=== PATIENT | male | born 1980 | race Two or more races ===

== ENCOUNTER 2016-12-17 10:18 | Inpatient (IN) | payer SELFPAY ==
[~2016-12-17] VITALS: Ht 175.3 cm; Wt 101.0 kg
[2016-12-17] MEDS ORDERED: VANCOMYCIN 1GM/250ML D5W 250 ML IV ONE (12:00)
[2016-12-17] MEDS ORDERED: TETANUS-DIPTH-ACEL PERTUSSIS 0.5ML SYRG IM ONE (12:00)
[2016-12-17] MEDS ORDERED: MORPHINE SULFATE 4 MG/ML SYRG IM ONE (12:00)
[2016-12-17] MEDS ORDERED: SODIUM CHLORIDE 0.9% 1,000 ML IV ONE (12:00)
[2016-12-17] MEDS ORDERED: PIPERACILLIN-TAZOB 3.375GM 100 ML IV ONE (12:00)
[2016-12-17] MEDS ORDERED: ONDANSETRON HCL 4 MG/2 ML VIAL IV ONE (12:00)
[2016-12-17 12:09] LABS: Basophils # (auto) 0 uL; Basophils % (auto) 0.3 % (0.0-2.0); Eosinophils # (auto) 0.2 uL; Eosinophils % (auto) 1.6 % (0.0-7.0); Hematocrit 40.5 % (41.0-53.0); Hemoglobin 13.7 g/dL (13.5-17.5); Lymphocytes # (auto) 2.2 uL; Lymphocytes % (auto) 18.5 % (10.0-50.0); Mean Corpuscular Hgb Conc. 33.8 g/dL (32.0-36.0); Mean Corpuscular Volume 94.6 fL (80.0-100.0); Mean Platelet Volume 7.1 fL (7.4-10.4); Monocytes # (auto) 1.4 uL; Monocytes % (auto) 12.1 % (0.0-12.0); Neutrophils % (auto) 67.5 % (37.0-80.0); Platelet Count (auto) 353 10^3/uL (140-450); Red Cell Distribution Width 12.4 % (11.6-16.0); White Blood Cell 11.8 10^3/uL (4.4-10.8)
[2016-12-17] MEDS ORDERED: MORPHINE SULFATE 4 MG/ML SYRG IV ONE (12:15)
[2016-12-17] MEDS: SODIUM CHLORIDE 0.9% 1,000 ML IV SCH ×2 (12:20→22:20)
[2016-12-17 12:29] LABS: Albumin 3.3 g/dL (3.4-5.0); BUN/Creatinine Ratio 19.1; Calcium 8.7 mg/dL (8.5-10.1); Potassium 3.9 mmol/L (3.5-5.1); Total Protein 7.4 g/dL (6.4-8.2)
[2016-12-17] MEDS ORDERED: LACTULOSE 20Gm/30ML SOLN PO PRN (12:30)
[2016-12-17] MEDS ORDERED: PROMETHAZINE HCL 25 MG/ML 1ML IV PRN (12:30)
[2016-12-17] MEDS ORDERED: TEMAZEPAM 15 MG CAP PO PRN (12:30)
[2016-12-17] MEDS ORDERED: ACETAMINOPHEN 500 MG TAB PO PRN (12:30)
[2016-12-17] MEDS ORDERED: LORazepam 0.5 MG TAB PO PRN (12:30)
[2016-12-17 12:50] LABS: INR 0.99 (0.9-1.15); Partial Thromboplastin Time 33.1 sec (22.64-33.71); Prothrombin Time 10.2 sec (9.37-12.3)
[2016-12-17] MEDS: HYDROcodone-ACET 5/325MG TAB PO PRN ×2 (13:43→21:46)
[2016-12-17] MEDS: CLINDAMYCIN 600MG IV 50 ML IV SCH ×2 (14:50→21:45)
[2016-12-17 16:56] VITALS: BP 123/71
[2016-12-17] MEDS: MORPHINE SULF INJ 2 MG/ML SYRINGE 1ML IV PRN (18:41)
[2016-12-17 21:56] VITALS: BP 123/74
[2016-12-18] MEDS: MORPHINE SULF INJ 2 MG/ML SYRINGE 1ML IV PRN ×2 (03:04→20:43)
[2016-12-18 04:57] VITALS: BP 106/65
[2016-12-18] MEDS: CLINDAMYCIN 600MG IV 50 ML IV SCH ×3 (05:16→22:14)
[2016-12-18 05:48] LABS: Basophils # (auto) 0 uL; Basophils % (auto) 0.2 % (0.0-2.0); Eosinophils # (auto) 0.2 uL; Eosinophils % (auto) 1.9 % (0.0-7.0); Hematocrit 38.5 % (41.0-53.0); Hemoglobin 12.8 g/dL (13.5-17.5); Lymphocytes # (auto) 1.9 uL; Lymphocytes % (auto) 21.9 % (10.0-50.0); Mean Corpuscular Hemoglobin 31.6 pg (28.0-32.0); Mean Corpuscular Hgb Conc. 33.3 g/dL (32.0-36.0); Mean Corpuscular Volume 94.8 fL (80.0-100.0); Mean Platelet Volume 6.7 fL (7.4-10.4); Monocytes % (auto) 11.7 % (0.0-12.0); Neutrophils # (auto) 5.6 uL; Neutrophils % (auto) 64.3 % (37.0-80.0); Platelet Count (auto) 348 10^3/uL (140-450); Red Cell Distribution Width 12.3 % (11.6-16.0); White Blood Cell 8.8 10^3/uL (4.4-10.8)
[2016-12-18 06:17] LABS: Cholesterol 184 mg/dL (<200); HDL Cholesterol 43 mg/dL (40-59); LDL Cholesterol 123 mg/dL (<100); Triglycerides 114 mg/dL (<150)
[2016-12-18] MEDS ORDERED: ceFAZolin 1GM/50ML D5W 50 ML IV ONE (07:10)
[2016-12-18] MEDS ORDERED: BUPIVACAINE 0.25% INJ 50ML VIAL ONE (07:52)
[2016-12-18] MEDS ORDERED: LIDOCAINE 1% HCL (LOCAL ANESTH.) INJ 20ML MDV ONE (07:52)
[2016-12-18] MEDS ORDERED: BUPIVACAINE W/ EPINEPH 0.25% INJ 50ML MDV ONE (07:52)
[2016-12-18] MEDS ORDERED: LIDOCAINE W/ EPINEPHRINE 1 % INJ 30ML ONE (07:52)
[2016-12-18] MEDS ORDERED: ceFAZolin 1GM VL ONE (08:15)
[2016-12-18] MEDS: SODIUM CHLORIDE 0.9% 1,000 ML IV SCH ×2 (08:20→18:49)
[2016-12-18] MEDS ORDERED: MIDAZOLAM HCL 1MG/1ML-2 ML VIAL ONE (08:21)
[2016-12-18] MEDS ORDERED: fentaNYL CITRATE 100 MCG/2 ML VL ONE (08:21)
[2016-12-18] MEDS ORDERED: MEPERIDINE HCL (50 MG/ML) 1 ML VIAL ONE (08:21)
[2016-12-18] MEDS ORDERED: DEXAMETHASONE SOD PHOS 10MG/1ML VIAL INJ ONE (08:22)
[2016-12-18] MEDS ORDERED: KETOROLAC TROMETH 30 MG/ML 1ML VIAL IV ONE (08:30)
[2016-12-18] MEDS ORDERED: MIDAZOLAM HCL 1MG/1ML-2 ML VIAL IV PRN (08:30)
[2016-12-18] MEDS ORDERED: LABETALOL HCL 5 MG/ML 4ML SYRINGE IV PRN (08:30)
[2016-12-18] MEDS ORDERED: ONDANSETRON HCL 4 MG/2 ML VIAL IV ONE (08:30)
[2016-12-18] MEDS ORDERED: ePHEDrine SULFATE 50 MG/ML AMP IV PRN (08:30)
[2016-12-18] MEDS ORDERED: MORPHINE SULF INJ 2 MG/ML SYRINGE 1ML IV PRN (08:30)
[2016-12-18] MEDS ORDERED: PROPOFOL 10 MG/ML 20 ML IV ONE (08:40)
[2016-12-18] MEDS: cefTRIAXone 1GM/50ML D5W 50 ML IV SCH (09:00)
[2016-12-18] MEDS ORDERED: KETOROLAC TROMETH 30 MG/ML 1ML VIAL ONE (09:03)
[2016-12-18] MEDS: HYDROmorphone HCL 2 MG/ML VL IV PRN ×4 (09:46→10:16)
[2016-12-18] MEDS ORDERED: HYDROmorphone HCL 2 MG/ML VL IV PRN (10:15)
[2016-12-18 12:45] VITALS: BP 121/69
[2016-12-18 16:44] VITALS: BP 105/58
[2016-12-18] MEDS: HYDROcodone-ACET 5/325MG TAB PO PRN ×2 (17:28→23:48)
[2016-12-18 21:28] VITALS: BP 109/66
[2016-12-19 05:25] VITALS: BP 114/63
[2016-12-19 06:02] LABS: Basophils # (auto) 0 uL; Basophils % (auto) 0.2 % (0.0-2.0); Eosinophils # (auto) 0 uL; Eosinophils % (auto) 0.4 % (0.0-7.0); Hematocrit 34.6 % (41.0-53.0); Hemoglobin 11.6 g/dL (13.5-17.5); Lymphocytes # (auto) 1.7 uL; Lymphocytes % (auto) 14.9 % (10.0-50.0); Mean Corpuscular Hemoglobin 31.9 pg (28.0-32.0); Mean Corpuscular Hgb Conc. 33.5 g/dL (32.0-36.0); Mean Corpuscular Volume 95.3 fL (80.0-100.0); Mean Platelet Volume 6.9 fL (7.4-10.4); Monocytes % (auto) 8.5 % (0.0-12.0); Neutrophils # (auto) 8.6 uL; Platelet Count (auto) 359 10^3/uL (140-450); Red Cell Distribution Width 11.9 % (11.6-16.0); White Blood Cell 11.3 10^3/uL (4.4-10.8)
[2016-12-19] MEDS: CLINDAMYCIN 600MG IV 50 ML IV SCH (06:55)
[2016-12-19] MEDS: SODIUM CHLORIDE 0.9% 1,000 ML IV SCH ×4 (06:55→22:49)
[2016-12-19] MEDS: MORPHINE SULF INJ 2 MG/ML SYRINGE 1ML IV PRN ×4 (07:04→23:19)
[2016-12-19 08:40] VITALS: BP 118/63
[2016-12-19] MEDS: HYDROcodone-ACET 5/325MG TAB PO PRN ×3 (08:54→20:41)
[2016-12-19] MEDS: cefTRIAXone 1GM/50ML D5W 50 ML IV SCH (08:55)
[2016-12-19] MEDS ORDERED: HYDROmorphone HCL 2 MG/ML VL IV PRN (09:30)
[2016-12-19] MEDS ORDERED: VANCOMYCIN PER PHARMACY 0 MG IV SCH (09:30)
[2016-12-19] MEDS: VANCOMYCIN 1GM/250ML D5W 250 ML IV SCH ×2 (12:00→18:50)
[2016-12-19 12:32] VITALS: BP 123/80
[2016-12-19 16:47] VITALS: BP 122/73
[2016-12-19 21:27] VITALS: BP 120/72
[2016-12-20] MEDS: VANCOMYCIN 1GM/250ML D5W 250 ML IV SCH ×2 (03:08→11:00)
[2016-12-20] MEDS: MORPHINE SULF INJ 2 MG/ML SYRINGE 1ML IV PRN (03:09)
[2016-12-20 05:11] VITALS: BP 118/74
[2016-12-20 06:23] LABS: Basophils # (auto) 0 uL; Basophils % (auto) 0.6 % (0.0-2.0); Eosinophils # (auto) 0.2 uL; Eosinophils % (auto) 2.3 % (0.0-7.0); Hematocrit 35.4 % (41.0-53.0); Hemoglobin 11.7 g/dL (13.5-17.5); Lymphocytes # (auto) 2.6 uL; Lymphocytes % (auto) 33.2 % (10.0-50.0); Mean Corpuscular Hemoglobin 31.7 pg (28.0-32.0); Mean Corpuscular Hgb Conc. 33.1 g/dL (32.0-36.0); Mean Corpuscular Volume 95.6 fL (80.0-100.0); Mean Platelet Volume 6.6 fL (7.4-10.4); Monocytes # (auto) 0.7 uL; Monocytes % (auto) 8.7 % (0.0-12.0); Neutrophils # (auto) 4.3 uL; Neutrophils % (auto) 55.2 % (37.0-80.0); Platelet Count (auto) 402 10^3/uL (140-450); Red Cell Distribution Width 11.9 % (11.6-16.0); White Blood Cell 7.8 10^3/uL (4.4-10.8)
[2016-12-20 06:45] LABS: BUN/Creatinine Ratio 18.1; Calcium 8.5 mg/dL (8.5-10.1); Potassium 4.1 mmol/L (3.5-5.1)
[2016-12-20] MEDS: HYDROcodone-ACET 5/325MG TAB PO PRN ×2 (06:45→13:21)
[2016-12-20] MEDS: cefTRIAXone 1GM/50ML D5W 50 ML IV SCH (08:46)
[2016-12-20 09:00] VITALS: BP 119/75
[2016-12-20 12:50] VITALS: BP 128/79
== END 2016-12-20 13:55 | disposition home or self-care (01) | DRG 501 ==
LOC: ER 10:18 → OVERFLOW 10:19 → CENTRAL 12:51
PROVIDERS: ADMIT Internal Medicine; ATTEND Internal Medicine
PROC: 0MTP0ZZ Resection of Left Knee Bursa and Ligament, Open Approach (ICD-10-PCS; principal; 2016-12-17)
DX: M70.42 Prepatellar bursitis, left knee (principal); L03.116 Cellulitis of left lower limb; L02.416 Cutaneous abscess of left lower limb; E66.01 Morbid (severe) obesity due to excess calories; Z23 Encounter for immunization; Z83.3 Family history of diabetes mellitus; Z68.32 Body mass index [BMI] 32.0-32.9, adult
CPT/HCPCS: 36415; 73562; 80048; 80053; 80061; 85025; 85049; 85610; 85652; 85730; 87040; 87070; 87075; 87077; 87186; 87205; 90471; 90715; 96374; 96375; J0690; J0696; J1100; J1885; J2001; J2250; J2405; J2704; J3490